=== PATIENT | female | born 1975 | race Caucasian/White ===

== ENCOUNTER 2017-10-21 14:22 | Outpatient (CLI) | payer OTHER ==
[2017-10-21 15:07] LABS: Mean Platelet Volume 8.5 fL (7.4-10.4); Red Blood Cell (RBC) Count 4.14 mill/uL (4.20-5.40); White Blood Cell (WBC) Count 7.2 thou/uL (4.8-10.8)
== END 2017-10-21 14:23 | disposition home or self-care (01) ==
LOC: LABBT 14:22
PROVIDERS: ATTEND Obstetrics & Gynecology
DX: Z01.812 Encounter for preprocedural laboratory examination (principal); N93.9 Abnormal uterine and vaginal bleeding, unspecified
CPT/HCPCS: 84703; 85027; 86850; 86900; 86901

== ENCOUNTER 2017-10-25 09:57 | Day surgery (SDC) | payer OTHER ==
[2017-10-21 14:46] VITALS: BMI 30.7
--- NOTE | 2017-10-24 10:40 | HP ---
DATE OF PLANNED PROCEDURE: 10/25/2017 PREOPERATIVE DIAGNOSIS: Abnormal uterine bleeding PROCEDURES TO BE PERFORMED: Hysteroscopy with likely polypectomy, dilation and curettage. HISTORY OF PRESENT ILLNESS: Ms. Noemy Carter is a 42-year-old G2, P1-0-1-1, last menstrual period at the time of this dictation on 09/22/2017 who was referred to me to discuss polypectomy for abnormal bleeding. The patient gives a history of trying to conceive and using a natural fertility specialist in [place] for number of years. The patient reports abnormal bleeding since the delivery of her l ast child approximately 5 years ago. Last year, her bleeding has become heavier and more irregular w ith some cycles lasting only 21 days. She also does give a history of bleeding between her periods a s well. The patient has been taking progesterone supplements which we discussed may be contributing to the irregularity in her cycle. She had an ultrasound with her primary care provider that was sugg estive of a polyp and the patient would like to have it removed via hysteroscopy. During our discuss ions, we also discussed the indication for endometrial biopsy versus D&C and the patient elected to d efer the endometrial biopsy, understanding that if abnormal cells are noted at the time of dilation a nd curettage, additional surgery may be indicated. PAST MEDICAL HISTORY: None. CURRENT MEDICATIONS: Progesterone supplements and vitamins. PAST SURGICAL HISTORY: In 2003, removal of pilonidal cyst. OBSTETRICAL HISTORY: Spontaneous vaginal delivery in 2010 and spontaneous miscarriage prior. GYNECOLOGIC HISTORY: Significant for the above as stated in HPI. Negative for dysmenorrhea. No his tory of STD, PID, or abnormal Pap smear. SOCIAL HISTORY: She is a former smoker. She does not use alcohol, tobacco, or drugs currently. She is and sexually active. ALLERGIES: No known drug allergies. No latex allergies. FAMILY HISTORY: Significant for hypertension, hypercholesterolemia, otherwise negative. No history of cancer in her family. REVIEW OF SYSTEMS: Negative except as stated above. PHYSICAL EXAMINATION: VITAL SIGNS: Blood pressure 128/80, pulse 95, BMI 31.6 kilograms. GENERAL: No acute distress, alert, and oriented. CHEST: Normal breath sounds and nonlabored breathing. MUSCULOSKELETAL: Normal range of motion. NEUROLOGIC: Grossly oriented to person, time, and place. SKIN: No rashes. Normal color. Of note, patient left prior to performing pelvic exam. The patient was given the opportunity to return to clinic for pelvic exam, but deferred and will have exam under anesthesia at the time of her surgery. IMAGING STUDIES: Uterus 7 x 4.9 x 4.2 cm, normal appearing ovaries. Endometrial thickness 8.06 mm w ith possible polyp noted within the lining of approximately 1.10 x 0.52 cm. ASSESSMENT AND PLAN: Ms. Noemy Carter is a 42-year-old female with abnormal bleeding and ultrasound findings suggestive of an endometrial polyp. The patient desires polypectomy as she is trying to con ceive for a number of years. She declined endometrial biopsy in the office. She understands the ris k and benefits of hysteroscopy, dilation and curettage and polypectomy are to include, but not limite d to bleeding, infection, damage to the internal pelvic organs, uterine perforation, infection, bleed ing, inability to fully diagnose and treat all conditions at the time of surgery and possible need fo r future medical and/or surgical management. The patient's questions have been answered to her satis faction, and she desires to undergo the aforementioned procedure.
[2017-10-25] MEDS ORDERED: Scopolamine 1.5 mg/72 hour Patch ONE (11:19)
[2017-10-25] MEDS ORDERED: Midazolam HCl 2 mg/2 ml Vial ONE (11:28)
[2017-10-25] MEDS ORDERED: Fentanyl 100 MCG/2 ML VIAL ONE (11:50)
[2017-10-25] MEDS ORDERED: Morphine 4 MG/ML Carpuject ONE (11:51)
[2017-10-25] MEDS ORDERED: Ondansetron HCl/PF 4 MG/2 ML Vial ONE (16:49)
[2017-10-25] MEDS ORDERED: Metoclopramide HCl 10 MG/2 ML VIAL ONE (16:49)
[2017-10-25] MEDS ORDERED: Propofol 200 MG/20 ML VIAL ONE (16:49)
[2017-10-25] MEDS ORDERED: Lidocaine 1% PF 5 ML VIAL ONE (16:49)
[2017-10-25] MEDS ORDERED: Dexamethasone 20 MG/5 ML VIAL ONE (16:49)
--- NOTE | 2017-10-25 18:16 | OP ---
DATE OF PROCEDURE: 10/25/2017 PREOPERATIVE DIAGNOSIS: Abnormal uterine bleeding. POSTOPERATIVE DIAGNOSIS: Uterine polyp noted. PROCEDURES PERFORMED: Dilation of the cervix, hysteroscopy, polypectomy, and uterine curettage. SURGEON: Jamar Mary D.O. BACTERIOLOGIST INDUSTRIAL: None. COMPLICATIONS: None. ESTIMATED BLOOD LOSS: Less than 10 mL. INTRAOPERATIVE FINDINGS: Uterus sounds to 6 cm. Hysteroscopic findings, normal appearing cervix, no rmal intracervical canal, normal intrauterine cavity with the exception of endometrial polyp noted on the anterior wall of the endometrial cavity, midway between the cervix and the uterine fundus. Norm al appearing tubal ostia identified. PROCEDURE DETAILS: The patient was taken back to the OR with IV fluids running. Once anesthesia was obtained, she was placed in low dorsal lithotomy position, and the vagina was prepped and draped in normal fashion for gynecologic surgery. The bladder was drained. An operative speculum was placed i nto the vagina, and a single-tooth tenaculum was placed on the anterior lip of the cervix, and the ce rvix sounded to approximately 6 cm. The cervix was then serially dilated to allow for passage of the hysteroscope. This was done without any difficulty. The hysteroscope was then advanced under direc t visualization into the uterine cavity. The uterine cavity was distended with normal saline. The p olyp was immediately identified in the midline at the anterior wall of the endometrial cavity. After the inside of the uterine cavity was inspected and no other abnormalities were noted, a [employer] isor was passed through the operative channel of the scope, and the polyp was resected under direct v isualization. A second smaller polyp was then seen behind the larger original polyp and was resected as well. The hysteroscope was then removed from the intrauterine cavity. Proliferative appearing e ndometrium was noted, and endometrial sampling was completed with a gentle uterine curettage. The sa mple was sent for pathologic review as well as the endometrial polyps. All instruments were removed from the vagina. The cervix was inspected, and no areas of bleeding were noted. The procedure was c ompleted without complication or difficulty. The patient was then cleaned, dried, taken out of litho chris position, and transferred to recovery room in good condition.
== END 2017-10-25 15:30 | disposition home or self-care (01) ==
LOC: SDC 09:57
PROVIDERS: ATTEND Obstetrics & Gynecology
PROC: 0UB98ZZ Excision of Uterus, Via Natural or Artificial Opening Endoscopic (ICD-10-PCS; principal; 2017-10-25)
PROC: 0UDB8ZZ Extraction of Endometrium, Via Natural or Artificial Opening Endoscopic (ICD-10-PCS; principal; 2017-10-25)
DX: N84.0 Polyp of corpus uteri (principal); Z87.891 Personal history of nicotine dependence; Z79.899 Other long term (current) drug therapy; Z98.890 Other specified postprocedural states
CPT/HCPCS: 88305; J0131; J1100; J2001; J2250; J2270; J2405; J2704; J2765; J3010